=== PATIENT | female | born 1980 | race Two or more races ===

== ENCOUNTER 2018-12-18 13:33 | Emergency (ER) | payer BC ==
[~2018-12-18] VITALS: Ht 167.6 cm; Wt 61.2 kg
[2018-12-18] MEDS ORDERED: SODIUM CHLORIDE 0.9% 1,000 ML IV ONE (13:39)
[2018-12-18 14:00] LABS: Basophils # (auto) 0.1 uL; Basophils % (auto) 0.7 % (0.0-2.0); Eosinophils # (auto) 0.1 uL; Hematocrit 34.4 % (36.0-46.0); Hemoglobin 11.7 g/dL (12.2-16.2); Lymphocytes # (auto) 2.5 uL; Lymphocytes % (auto) 33.3 % (10.0-50.0); Mean Corpuscular Hemoglobin 30.6 pg (28.0-32.0); Mean Corpuscular Volume 89.9 fL (80.0-100.0); Monocytes # (auto) 0.7 uL; Monocytes % (auto) 8.9 % (0.0-12.0); Neutrophils # (auto) 4.3 uL; Neutrophils % (auto) 56.1 % (37.0-80.0); Platelet Count (auto) 278 10^3/uL (140-450); Red Blood Cells 3.83 10^6/uL (4.0-5.20); Red Cell Distribution Width 12.6 % (11.8-14.3); White Blood Cell 7.6 10^3/uL (4.4-10.8)
[2018-12-18 14:16] LABS: Alanine Aminotransferase 20 U/L (13-56); Albumin 3.5 g/dL (3.4-5.0); Anion Gap 7 (5-15); Blood Urea Nitrogen 21 mg/dL (7-18); Calcium 9.1 mg/dL (8.5-10.1); Carbon Dioxide 23 mmol/L (21-32); Chloride 108 mmol/L (98-107); Glucose 88 mg/dL (74-106); Potassium 4.5 mmol/L (3.5-5.1); Sodium 138 mmol/L (136-145)
[2018-12-18 14:21] LABS: Alkaline Phosphatase 68 U/L (45-117); Aspartate Aminotransferase 14 U/L (15-37); BUN/Creatinine Ratio 24.7; Bilirubin, Total 0.4 mg/dL (0.2-1.0); GFR African American 97 mL/min; GFR Non-African American 80 mL/min; Total Protein 8.1 g/dL (6.4-8.2)
[2018-12-18] MEDS ORDERED: IBUPROFEN 600 MG TAB PO ONE (17:15)
[2018-12-18 17:49] VITALS: BP 123/47
== END 2018-12-18 17:54 | disposition home or self-care (01) ==
LOC: EDBD 13:33 → ER 13:33
DX: R55 Syncope and collapse (principal); N80.9 Endometriosis, unspecified; Z90.89 Acquired absence of other organs
CPT/HCPCS: 36415; 70450; 80053; 84484; 85025; 96360